=== PATIENT | female | born 1965 | race Two or more races ===

== ENCOUNTER → 2024-10-16 | Outpatient (CLI) | payer MEDICAID, SELFPAY ==
--- NOTE | 2024-10-16 13:30 | XR_ITS ---
Examination: CT abdomen and pelvis without contrast. Coronal 3-D reconstructions. Sagittal 2-D reconstructions. Date and time of exam: October 16, 2024 1341 hours INDICATIONS: Right-sided abdominal pain beginning 3 weeks ago CTDI: vol (mGy): 12.6 DLP: (mGycm): 612 Technique: Axial images of the abdomen have been obtained, 3 mm slice thickness Intravenous contrast material has not been administered. Low dose protocols were performed. One or more of the following dose reduction techniques were used; automated exposure control, adjustment of the mA and/or KV according to patient size, use of iterative reconstruction technique. Findings: Severe diffuse fatty infiltration throughout the liver Mild density in the gallbladder Spleen not enlarged No pancreatic mass Retrocardiac gastric hernia Right kidney and normal position no hydronephrosis Atrophic left kidney in the posterior pelvis No bowel obstruction Normal appendix Enlarged fundus of uterus with calcified uterine masses Contracted urinary bladder Diffuse advanced lumbar degenerative disc disease with significant spinal stenosis Prominent thoracolumbar levoscoliosis lower lumbar dextroscoliosis Moderate narrowing hip joints 3 cm right pelvic cyst IMPRESSION: Severe diffuse fatty infiltration throughout the liver Normal appendix No acute process in the abdomen or pelvis Recommend pelvic sonography to confirm 3 cm right pelvic cyst
== END | disposition home or self-care (01) ==
PROVIDERS: Referring Provider Nurse Practitioner Family; Visit Provider Nurse Practitioner Family
DX: K76.0 Fatty (change of) liver, not elsewhere classified (principal)
CPT/HCPCS: 74176

== ENCOUNTER → 2024-11-23 | Outpatient (CLI) | payer MEDICAID, SELFPAY ==
--- NOTE | 2024-11-23 10:14 | XR_ITS ---
Examination: Shoulder,left, 3 views Technique: Shoulder AP internal rotation, AP external rotation, Y view shoulder, 3 views Exam date and time :November 15, 2024 1028 hours INDICATIONS: Left shoulder pain beginning 9 months ago. FINDINGS: Moderate narrowing glenohumeral joint No shoulder fracture or dislocation. No calcific tendinitis IMPRESSION: Moderate narrowing glenohumeral joint
== END | disposition home or self-care (01) ==
LOC: CDIM 09:46
PROVIDERS: PCP Nurse Practitioner Family; Referring Provider Nurse Practitioner Family; Visit Provider Nurse Practitioner Family
DX: M25.812 Other specified joint disorders, left shoulder (principal)
CPT/HCPCS: 73030

== ENCOUNTER → 2024-12-08 | Outpatient (CLI) | payer MEDICAID, SELFPAY ==
--- NOTE | 2024-12-08 13:30 | XR_ITS ---
Examination: Transvaginal ultrasound of the pelvis, complete Technique: Transvaginal sonographic images pelvis performed using diaz scale imaging Exam date and time: December 08, 2024 1309 hours INDICATIONS: Calcified uterine masses on CT examination October 16, 2024 FINDINGS: Uterus 6.6 cm Anterior uterine body mass 14 x 13 mm Anterior uterine fundal mass 20 x 21 mm posterior uterine fundal mass 19 x 21 mm Endometrial sign 0.6 cm Right ovary 3.4 cm arterial flow 14 mm 13 mm follicular cyst Left ovary obscured by bowel gas IMPRESSION: Multiple uterine areas of fibroid degeneration, recommend 6 month follow-up transvaginal pelvic sonography.
--- NOTE | 2024-12-08 13:30 | XR_ITS ---
Examination: Pelvic ultrasound, transabdominal, complete Technique: Transabdominal ultrasound of the pelvis performed using grayscale imaging Date and time of exam: December 08, 2024 at 1259 hours INDICATIONS: Calcified uterine masses on CT examination October 16, 2024 FINDINGS: Uterus 7.4 cm endometrial stripe 0.6 cm Posterior fundal mass 2.4 x 2.1 cm Right ovary 3.9 cm arterial flow 16mm 13 mm follicular cyst Left ovary obscured by bowel gas IMPRESSION: Small uterine area of fibroid degeneration 24 x 19 x 21 mm
== END | disposition home or self-care (01) ==
LOC: CDIM 12:28
PROVIDERS: PCP Nurse Practitioner Family; Referring Provider Nurse Practitioner Family; Visit Provider Nurse Practitioner Family
DX: D25.9 Leiomyoma of uterus, unspecified (principal)
CPT/HCPCS: 76830; 76856

== ENCOUNTER 2025-02-16 12:10 | Day surgery (SDC) | payer MEDICAID, SELFPAY ==
[2025-02-16] VITALS (9 sets, daily range): BP systolic 103–216; BP diastolic 67–109; PULSE 63–81; RESP 14–22; TEMP 36.3–36.7; O2SAT 94–99; BMI 30.9
[2025-02-16] MEDS: RINGERS LACTATED 1000 ML 1,000 ML 125 ML IV (13:55)
[2025-02-16] MEDS: MIDAZOLAM INJ 1 MG/ML VIAL 2 ML (ASD USE ONLY) 2 MG IVP (13:55)
[2025-02-16] MEDS: fentaNYL CIT INJ 50 mCg/ML AMP 2ML (ASD USE ONLY) IVP (13:56)
== END 2025-02-16 15:00 | disposition home or self-care (01) ==
PROVIDERS: PCP Physician Assistant; Referring Provider Internal Medicine Gastroenterology; Visit Provider Internal Medicine Gastroenterology
PROC: (CPT 43239; principal; 2025-02-16 14:15)
DX: K29.70 Gastritis, unspecified, without bleeding (principal); K44.9 Diaphragmatic hernia without obstruction or gangrene; E66.9 Obesity, unspecified; I10 Essential (primary) hypertension; K31.89 Other diseases of stomach and duodenum; Z68.30 Body mass index [BMI] 30.0-30.9, adult
CPT/HCPCS: 43239; J2250; J3010; J7120

== ENCOUNTER 2025-02-18 10:50 | Day surgery (SDC) | payer MEDICAID, SELFPAY ==
[2025-02-18] VITALS (9 sets, daily range): BP systolic 109–152; BP diastolic 62–104; PULSE 74–87; RESP 15–20; TEMP 36.3–36.7; O2SAT 95–100; BMI 34.9
[2025-02-18] MEDS: SODIUM CHLORIDE 0.9% 500 ML 500 ML 20 ML IV (12:50)
[2025-02-18] MEDS: fentaNYL CIT INJ 50 mCg/ML AMP 2ML IVP (12:54)
[2025-02-18] MEDS: MIDAZOLAM INJ 1 MG/ML VIAL 2 ML (ASD USE ONLY) 2 MG IVP (12:54)
== END 2025-02-18 13:45 | disposition home or self-care (01) ==
PROVIDERS: PCP Physician Assistant; Referring Provider Internal Medicine Gastroenterology; Visit Provider Internal Medicine Gastroenterology
PROC: 0DBE8ZX Excision of Large Intestine, Via Natural or Artificial Opening Endoscopic, Diagnostic (ICD-10-PCS; CPT 45380; principal; 2025-02-18 13:30)
DX: K52.9 Noninfective gastroenteritis and colitis, unspecified (principal); K64.8 Other hemorrhoids; I10 Essential (primary) hypertension; E78.5 Hyperlipidemia, unspecified
CPT/HCPCS: 45380; J2250; J3010; J7999

== ENCOUNTER 2025-02-22 09:59 | Outpatient (RCR) | payer MEDICAID, SELFPAY ==
--- NOTE | 2025-02-22 11:09 | PTNOTE_ITS ---
PT OP Initial Eval Patient Information Outpatient Physical Therapy Treatment Date: 02/22/25 Visit Reasons: Pain in left shoulder Medical Diagnosis: Left Shoulder OA Treatment Dx #1: Left Shoulder Pain Treatment Dx #2: Left Shoulder Mobility Deficits Start of Care: 02/22/25 Date of Onset: December 2023 Smoking Status Smoking Status: Never smoker Initial Assessment Subjective: Pt is a 59 y/o female reports of chronic left shoulder pain (02/04) since her shingle vaccine was administered by a pharmacy in [place], [place]. Pt's most recent shoulder xray showed moderate OA. No MRI has been done thus far. Pt has limitation with lifting, overhead motions, chores, self care, cooking, cleaning, and performing recreational activities. Objective: Left Shoulder Flexion: 75 deg Abduction: 93 deg External Rotation: 45 deg Internal Rotation: 30 deg Left Shoulder PROM Flexion: 90 deg Abduction: 100 deg External Rotation: 74 deg Internal Rotation: NT Left Shoulder MMTs: grossly 3-/5 Left Scapula MMTs: grossly 3-/5 Palpation: TTP supraspinatus tendon Assessment: Pt demonstrate left shoulder mobility and strength deficits leading to difficulty with ADLs. Pt will attempt physical therapy if pain persist Pt will be refer back to provider for further consultation. Short Term and Group Home Goals 1) Increase left shoulder PROM WFL in 6 wks to prevent frozen shoulder 2) Increase left shoulder AROM WFL in 6 wks to be able to perform overhead motions 3) Decrease shoulder pain to 2/10 in 6 wks to be able to perform lifting activities 4) Increase left shoulder MMTs grossly to 3+/5 in 6 wks to be able to perform recreational activities 5) Indep with HEP Treatment Plan 1) Manual Therapy 2) Therapeutic Activities 3) Therapeutic Exercises 4) Modalities (ice, heat) Frequency and Duration: 2 x wk for 6 wks Certification Dates: 02/22/25 to 05/25/25 Procedure Charges OP PT Eval Mod Complex 30 minutes: Yes
== END 2025-02-25 23:59 | disposition home or self-care (01) ==
LOC: CPTX 09:59
PROVIDERS: PCP Nurse Practitioner Family; Referring Provider Nurse Practitioner Family; Visit Provider Nurse Practitioner Family
DX: M25.512 Pain in left shoulder (principal); G89.29 Other chronic pain; M19.012 Primary osteoarthritis, left shoulder
CPT/HCPCS: 97162

== ENCOUNTER 2025-03-25 09:30 | Outpatient (RCR) | payer MEDICAID, SELFPAY ==
--- NOTE | 2025-03-15 13:55 | PT.ODAYNRPT ---
PT Outpatient Daily Note OP Daily Note Outpatient Physical Therapy Treatment Date: 03/15/25 Visit Reasons: Pain in left shoulder Subjective: Pt reports L shoulder is painful and stiff. Objective: Please see flow sheet for ther ex list. Assessment: Pt demonstrates poor activity tolerance due to pain response but determined to complete assigned reps. Plan: Continue with pOC. Length of Time (minutes) of Treatment: 30 Minutes Procedure Charges Therapeutic Exercise 30 minutes: Yes
--- NOTE | 2025-03-18 11:47 | PT.ODAYNRPT ---
PT Outpatient Daily Note OP Daily Note Outpatient Physical Therapy Treatment Date: 03/18/25 Visit Reasons: Pain in left shoulder Subjective: No new complaints. Objective: Please see flow sheet for ther ex list. Assessment: Added sci fit for B UE, pt tolerated well. Plan: Continue with pOC. Length of Time (minutes) of Treatment: 30 Minutes Procedure Charges Therapeutic Exercise 30 minutes: Yes
--- NOTE | 2025-03-25 10:06 | PT.ODAYNRPT ---
PT Outpatient Daily Note OP Daily Note Outpatient Physical Therapy Treatment Date: 03/25/25 Visit Reasons: Pain in left shoulder Subjective: Pt reports some progress with shoulder pain level. Objective: Please see flow sheet for ther ex list. Assessment: Pt requires demonstration and tactile cues with wand AAROM exercises, pt tends to recruit upper trap, corrects post cues. Plan: Continue with POC. Length of Time (minutes) of Treatment: 30 Minutes Procedure Charges Therapeutic Exercise 30 minutes: Yes
== END 2025-03-28 23:59 | disposition home or self-care (01) ==
LOC: CPTX 09:30
PROVIDERS: PCP Nurse Practitioner Family; Referring Provider Nurse Practitioner Family; Visit Provider Nurse Practitioner Family
DX: M25.512 Pain in left shoulder (principal); G89.29 Other chronic pain
CPT/HCPCS: 97110

== ENCOUNTER 2025-04-22 11:30 | Outpatient (RCR) | payer MEDICAID, SELFPAY ==
--- NOTE | 2025-03-30 11:33 | PT.ODAYNRPT ---
PT Outpatient Daily Note OP Daily Note Outpatient Physical Therapy Treatment Date: 03/30/25 Visit Reasons: pain in left shoulder Subjective: Pt reports progress with L shoulder, mentioned flexibility is improving. Objective: Please see flow sheet for ther ex list. Assessment: Pt demonstrates upper trap recruitment with AROM interventions, instructed to reduce height of reach resulting in improved mechanics. Plan: Continue with pOC. Length of Time (minutes) of Treatment: 30 Minutes Procedure Charges Therapeutic Exercise 30 minutes: Yes
--- NOTE | 2025-04-01 13:44 | PT.ODAYNRPT ---
PT Outpatient Daily Note OP Daily Note Outpatient Physical Therapy Treatment Date: 04/01/25 Visit Reasons: pain in left shoulder Subjective: Pt's shoulder feels much better. Pt still has limitation with washing her hair, however, sleeping and overhead motions are getting easier. Objective: Left Shoulder Flexion AROM: 150 deg; Abudction: 145 deg; External Rotation: 80 deg; Internal Rotation: 60 deg Assessment: Pt demonstrate improved left shoulder AROM in all plane with less pain reported allowing her to perform overhead motions with less limitation. Plan: Continue with PT Length of Time (minutes) of Treatment: 30 Minutes Procedure Charges Therapeutic Exercise 30 minutes: Yes
--- NOTE | 2025-04-05 15:12 | PT.ODAYNRPT ---
PT Outpatient Daily Note OP Daily Note Outpatient Physical Therapy Treatment Date: 04/05/25 Visit Reasons: pain in left shoulder Subjective: Pt reports progress with L shoulder flexibility. Objective: Please see flow sheet for ther ex list. Assessment: Progressing strengthening interventions, pt ROM continues to improve. Plan: Continue with POc. Length of Time (minutes) of Treatment: 30 Minutes Procedure Charges Therapeutic Exercise 30 minutes: Yes
--- NOTE | 2025-04-08 12:17 | PT.ODAYNRPT ---
PT Outpatient Daily Note OP Daily Note Outpatient Physical Therapy Treatment Date: 04/08/25 Visit Reasons: pain in left shoulder Subjective: Pt's shoulder feels much better and does not have any concerns. Objective: Please see flow chart for list of ther ex performed Assessment: continues to improve with shoulder flexion and scaption AROM in sitting position. Plan: Continue with PT Length of Time (minutes) of Treatment: 30 Minutes Procedure Charges Therapeutic Exercise 30 minutes: Yes
--- NOTE | 2025-04-13 14:12 | PT.ODAYNRPT ---
PT Outpatient Daily Note OP Daily Note Outpatient Physical Therapy Treatment Date: 04/13/25 Visit Reasons: pain in left shoulder Subjective: Pt's shoulder feels better. Pt has been able to sleep more on the side. Objective: Please see flow chart for list of ther ex performed Assessment: added more resistance to exercise program with good tolerance Plan: Continue with PT Length of Time (minutes) of Treatment: 30 Minutes Procedure Charges Therapeutic Exercise 30 minutes: Yes
--- NOTE | 2025-04-15 11:54 | PT.ODAYNRPT ---
PT Outpatient Daily Note OP Daily Note Outpatient Physical Therapy Treatment Date: 04/15/25 Visit Reasons: pain in left shoulder Subjective: Pt's shoulder is feeling much better. Over head motions are getting easier to perform as well as self care activities Objective: Please see flow chart for list of ther ex performed Assessment: no change in overall pain, however, pain continues to improve with shoulder AROM. frequent cues given to keep shoulder neutral with shoulder 4 ways Plan: Continue with PT Length of Time (minutes) of Treatment: 30 Minutes Procedure Charges Therapeutic Exercise 30 minutes: Yes
--- NOTE | 2025-04-22 13:02 | PT.ODAYNRPT ---
PT Outpatient Daily Note OP Daily Note Outpatient Physical Therapy Treatment Date: 04/22/25 Visit Reasons: pain in left shoulder Subjective: Pt reports L shoulder is moving better and notices less pain. Objective: Please see flow sheet for ther ex list. Assessment: Pt ROm and strength continues to improve. Progressing functional strengthening as tolerated. Plan: Continue with pOC. Length of Time (minutes) of Treatment: 30 Minutes Procedure Charges Therapeutic Exercise 30 minutes: Yes
== END 2025-04-27 23:59 | disposition home or self-care (01) ==
LOC: CPTX 11:30
PROVIDERS: PCP Nurse Practitioner Family; Referring Provider Nurse Practitioner Family; Visit Provider Nurse Practitioner Family
DX: M25.512 Pain in left shoulder (principal); G89.29 Other chronic pain; M19.012 Primary osteoarthritis, left shoulder
CPT/HCPCS: 97110

== ENCOUNTER 2025-05-05 11:30 | Outpatient (RCR) | payer MEDICAID, SELFPAY ==
--- NOTE | 2025-05-03 12:09 | PT.ODAYNRPT ---
PT Outpatient Daily Note OP Daily Note Outpatient Physical Therapy Treatment Date: 05/03/25 Visit Reasons: Pain in left shoulder Subjective: Pt's shoulder much better. Pt does not have any concerns Objective: Please see flow chart for list of ther ex performed Assessment: demonstrate full shoulder AROM with less pain reported. Added resistance scapula exercises with good tolerance Plan: Continue with PT Length of Time (minutes) of Treatment: 30 Minutes Procedure Charges Therapeutic Exercise 30 minutes: Yes
--- NOTE | 2025-05-05 15:33 | PT.ODS1RPT ---
PT OP Progress/Discharge Note Date of Service: 05/05/25 Progress Note/DC Note Progress Note/Discharge Note: DC Note Patient Information Visit Reasons: Pain in left shoulder Medical Diagnosis: Left Shoulder OA Treatment Dx #1: Left Shoulder Mobility Deficits Service Continue Service or Discharge: Discharge Discharge Date: 05/05/25 Status Subjective: Pt's shoulder feels much better. Pt mentioned overhead motions, chores, lifting, self care, and light ADLs are easier now. Objective: Left Shoulder AROM Flexion: 134 deg Abduction: 114 deg External Rotation: 80 deg Intenral Rotation: 60 deg Left Shoulder MMTs: grossly 4-/5 Left Scapula MMTs: grossly 3+/5 Assessment: Pt demonstrate functional shoulder moility and strength allowing her to perform ADLs with less limitation. Pt has completed authorized session and was instructed on HEP during her last session to continue at home to maintain overall mobility. Pt performed all exercises safely, thank you for your referrals. Plan: D/C home with HEP and follow up with [facility] Procedure Charges Therapeutic Exercise 30 minutes: Yes
== END 2025-05-28 23:59 | disposition home or self-care (01) ==
LOC: CPTX 11:30
PROVIDERS: PCP Nurse Practitioner Family; Referring Provider Nurse Practitioner Family; Visit Provider Nurse Practitioner Family
DX: M25.512 Pain in left shoulder (principal); G89.29 Other chronic pain; M19.012 Primary osteoarthritis, left shoulder
CPT/HCPCS: 97110